=== PATIENT | female | born 1965 | race Caucasian/White ===

== ENCOUNTER 2016-09-24 21:41 | Emergency (ER) | payer MEDICAID, OTHER ==
[~2016-09-24] VITALS: Ht 160 cm; Wt 74.1 kg
[2016-09-24 21:49] VITALS: Ht 160 cm; Wt 74.1 kg
--- NOTE | 2016-09-24 22:17 | ERA ---
ER Documentation Chief Complaint Date/Time DATE: 09/24/16 TIME: 22:15 Chief Complaint Shortness of breath and numbness to both hands HPI The patient is a 51-year-old male, presenting to the ER because of shortness of breath and bilateral hand numbness about 1 PM while she was talking with her son and her [id number] about her sick, hospitalized cancer . She is under a lot of stress, denies fever, chills, neck pain, chest pain, palpitation, diaphoresis, chest pain with exertion or vomiting or diaphoresis. She denies abdominal pain, vomiting, dysuria, diarrhea. She does not smoke nor drink Past medical history: Mitral valve prolapse Past surgical history: ROS All systems reviewed and are negative except as per history of present illness. Medications Home Meds No Active Prescriptions or Reported Meds Allergies Allergies: Coded Allergies: clotrimazole (Unverified Allergy, Unknown, 09/24/16) naproxen (Unverified Allergy, Unknown, 09/24/16) PMhx/Soc Medical and Surgical Hx: pt denies Surgical Hx History of Surgery: No Anesthesia Reaction: No Hx Neurological Disorder: No Hx Respiratory Disorders: No Hx Cardiac Disorders: Yes (VALVE PROLAPSE) Hx Psychiatric Problems: No Hx Miscellaneous Medical Probl: No Hx Alcohol Use: No Hx Substance Use: No Hx Tobacco Use: No Smoking Status: Never smoker Physical Exam Vitals Vital Signs Date Time Temp Pulse Resp B/P Pulse Ox O2 Delivery O2 Flow Rate FiO2 09/24/16 23:38 98.0 78 20 132/76 98 Room Air 09/24/16 22:29 98.0 77 16 137/78 98 Room Air 09/24/16 22:14 97.8 09/24/16 21:49 98 18 137/93 98 Physical Exam Const: No acute distress. Head: Atraumatic. Eyes: Normal Conjunctiva. ENT: Normal External Ears, Nose and Mouth. Neck: Full range of motion. No meningismus. Resp: Clear to auscultation bilaterally. Cardio: Regular rate and rhythm, no murmurs. Abd: Soft, non distended, normal bowel sounds, non tender. Skin: No petechiae or rashes. Back: No midline or flank tenderness. Ext: No cyanosis, or edema. Neur: Awake and alert. No focal deficit Psych: Normal Mood and Affect. Procedures/MDM EKG: Read by emergency physician Rate/Rhythm: Normal Sinus Rhythm 70 beats/min QRS, ST, T-waves: No ST elevation, no T inversion, artifacts Impression: Abnormal EKG MEDICAL MAKING DECISION: The patient is a 51-year-old presenting with acute stress, acute anxiety. The differential diagnoses considered include but are not limited to acute coronary syndrome, acute myocardial infarction, pericarditis, pulmonary embolism, aortic dissection, pneumonia, pleural effusion , pneumothorax, GERD, chest wall pain. Departure Diagnosis: Primary Impression: Acute anxiety Additional Impression: Acute stress reaction Condition: Good Comments I discussed the findings with the patient. I advised the patient to follow-up with the primary physician in about 1-2 days, sooner if needed and return if any concern. The patient's blood pressure was elevated (>120/80) but appears stable without evidence of hypertension emergency or urgency. The patient was counseled about the risks of hypertension and urged to pursue outpatient monitoring and therapy within a week with their primary care physician. JORDYN RAMOS MD Sep 24, 2016 22:17
[2016-09-24 23:38] VITALS: BP 132/76; PULSE 78; RESP 20; TEMP 98
== END 2016-09-24 23:40 | disposition home or self-care (01) ==
LOC: E/R 21:41
DX: F41.9 Anxiety disorder, unspecified (principal); F43.0 Acute stress reaction
CPT/HCPCS: 93005; Z7502